=== PATIENT | male | born 1955 | race African-American/Black ===

== ENCOUNTER 2017-04-20 15:00 | Emergency (ER) | payer OTHER ==
[~2017-04-20] VITALS: Ht 177.8 cm; Wt 85.1 kg
[2017-04-20 15:06] VITALS: TEMP 36.9; Ht 177.8 cm; Wt 85.1 kg
[2017-04-20 15:59] LABS: BASO % 0.2 %; BASO ABS # 0.01 K/uL (0-0.2); EOS % 2.7 %; EOS ABS # 0.16 K/uL (0-0.5); IG# 0.01 K/uL (0.00-0.02); LYMPH % 26.8 %; MEAN CELL VOLUME 87.6 fL (80-100); MEAN CORPUSCULAR HEMOGLOBIN 30.5 pg (25-34); MEAN CORPUSCULAR HGB CONC 34.9 g/dl (32-36); MEAN PLATELET VOLUME 9.4 fL (7.4-10.4); MONO ABS # 0.42 K/uL (0.11-0.59); NEUT % 63.1 %; NEUT ABS # 3.77 K/uL (1.4-6.5); PLATELET COUNT 234 K/uL (130-400); RED CELL DISTRIBUTION WIDTH CV 13.6 % (11.5-14.5); RED CELL DISTRIBUTION WIDTH SD 43.8 fL (36.4-46.3); WHITE BLOOD COUNT 5.97 K/uL (4.8-10.8)
[2017-04-20 16:53] LABS: ALBUMIN 4.2 gm/dl (3.4-5.0); CALCIUM 9.2 mg/dl (8.5-10.1); CREATININE 1.36 mg/dl (0.60-1.40); POTASSIUM 3.8 mmol/L (3.5-5.1); TOTAL PROTEIN 7.5 gm/dl (6.4-8.2)
--- NOTE | 2017-04-20 17:51 | DIAGNOSTIC IMAGING REPORT ---
CT OF THE HEAD WITHOUT CONTRAST CLINICAL HISTORY: Right facial weakness. COMPARISON STUDY: No previous studies for comparison. CT DOSE: 537.48 mGy.cm TECHNIQUE: Helical axial images of the head were obtained without IV contrast. Automated exposure control was utilized for the study. A dose lowering technique was utilized adhering to the principles of ALARA. FINDINGS: No acute intracranial hemorrhage, midline shift or mass effect is present. Ventricular system is normal. Basilar cisterns are patent. There are no extra-axial collections. Pierce-white differentiation is maintained. There are no findings to suggest acute dural sinus thrombosis or acute territorial infarct. The left sphenoid sinus is opacified. The left sphenoethmoidal recess is occluded. There is trace fluid within left mastoid air cells. There is moderate mucosal thickening of the right maxillary sinus with wall thickening. IMPRESSION: 1. No acute intracranial findings. 2. Opacified left sphenoid sinus and occluded left sphenoethmoidal recess. 3. Trace fluid within left mastoid air cells. Electronically signed by: Lincoln Harper M.D. 04/20/2017 5:50 PM Dictated Date/Time: 04/20/2017 5:46 PM
--- NOTE | 2017-04-20 18:09 | DIAGNOSTIC IMAGING REPORT ---
SOFT TISSUE NECK WITHOUT CLINICAL HISTORY: Right facial weakness. Evaluate for abscess. COMPARISON STUDY: No previous studies for comparison. TECHNIQUE: Axial images of the neck were obtained without IV contrast. Sagittal and coronal reconstructions were viewed. FINDINGS: Visualized portions of the intracranial contents are unremarkable. There is trace fluid within the left mastoid air cells. The left sphenoid sinus is opacified and the left sphenoethmoidal recess is occluded. There is marked mucosal thickening of the right maxillary sinus. Evaluation of the neck is suboptimal on this unenhanced exam. The epiglottis is normal. The parotid and submandibular glands are normal. Several teeth are absent. There are multiple dental amalgams. There are multiple periapical lucencies associated with mandibular teeth. No adjacent soft tissue abscess is identified on this unenhanced exam. There is no cervical lymphadenopathy. Lung apices are clear. No suspicious osseous lesions are present. Multiple sites of venous gas are noted. This is related to IV placement. Sensitivity for detection mucosal lesions is significantly diminished on this unenhanced exam. IMPRESSION: 1. No abscess within the neck. Suboptimal evaluation of the neck on this unenhanced exam. 2. Periapical lucencies associated with multiple mandibular teeth. No adjacent soft tissue abscess. 3. Opacified left sphenoid sinus with occluded left sphenoethmoidal recess. Marked mucosal thickening of the right maxillary sinus. Electronically signed by: Lincoln Harper M.D. 04/20/2017 6:07 PM Dictated Date/Time: 04/20/2017 5:59 PM
[2017-04-20] MEDS ORDERED: PRED50TA PO (18:56)
[2017-04-20] MEDS ORDERED: AMOX875T PO (18:56)
--- NOTE | 2017-04-20 19:01 | EMERGENCY ROOM VISIT NOTE ---
History Report prepared by Rosalie: Steven Gabriel Under the Supervision of: Dr. Jose Elias Zaman M.D. First contact with patient: 15:10 Chief Complaint: NEURO SYMPTOMS Stated Complaint: REDUSED MOTOR SKILLS History of Present Illness The patient is a 61 year old male who presents to the Emergency Room with complaints of persistent right facial weakness beginning two days ago. He woke up with abnormal sensations to his tongue initially, but later noticed problems with motor control of his right eye and right side of the mouth. The patient spoke with his machine riveter about his symptoms and was referred to the ED. He has no history of cardiac problems or stroke. He notes that he had a known tick bite seven months ago, and has not noticed any since. The patient denies chest pain, SOB, abdominal pain, nausea, vomiting, rashes, or fevers. He had surgery for sleep apnea two months ago. He notes that he has a "bad tooth" on the left side of his jaw, which started bothering him two days ago as well. The patient also complains of right neck pain which began a few weeks ago. Source of History: patient Onset: Two days ago Position: head (right face) Quality: other (weakness) Timing: other (persistent) Associated Symptoms: + neck pain (right, a few weeks ago), No chest pain, No SOB, No nausea, No vomiting, No abdominal pain, No rash Note: Additional symptoms: abnormal sensations of the tongue. Review of Systems See HPI for pertinent positives & negatives. A total of 10 systems reviewed and were otherwise negative. Past Medical & Surgical Medical Problems: (1) No Known Active Medical Problems Old medical records were reviewed. Nurse's notes were reviewed and I agree with. Family History No pertinent family history stated. Social History Smoking Status: Never Smoker Drug Use: none Occupation Status: employed Current/Historical Medications Scheduled Amoxicillin & Pot Clavulanate (Augmentin 875-125 mg), 875 MG PO BID Prednisone Tab (Prednisone), 50 MG PO QD Allergies Coded Allergies: [place] Starch (Verified Allergy, Severe, ANAPHYLAXIS, 04/20/17) Molds & Smuts (Unverified Allergy, Unknown, UNKNOWN, 04/20/17) Physical Exam Vital Signs Date Time Temp Pulse Resp B/P (MAP) Pulse Ox O2 Delivery O2 Flow Rate FiO2 04/20/17 19:24 54 18 150/91 99 Room Air 04/20/17 17:10 58 18 158/95 100 Room Air 04/20/17 15:06 36.9 66 18 159/101 97 Room Air Physical Exam General: Non-ill appearing middle-aged female in no acute distress. HEENT: Normal cephalic atraumatic. Pupils are equal round and reactive to light. There is some tearing of the right eye. Extraocular movements are intact. Oropharynx is pink with moist mucous membranes. No swelling of the mouth lips or tongue. No evidence of abscess. No Praneeth's angina. No difficulty speaking or swallowing. Neck: Supple with a midline trachea. No meningeal signs or stiffness, no JVD or bruits. No Stridor. Chest: Clear to auscultation bilaterally. No wheezes or rhonchi. No increased work of breathing. Heart: regular rate and rhythm. Abdomen: Soft nontender, nondistended without rebound guarding or rigidity. Extremities: No cyanosis clubbing or edema. No calf tenderness or assymetry Spine/Back. Non tender to palpation. No CVA tenderness Skin: Good turgor without rashes. Neurologic exam: Cranial nerves two through 12 are intact. Mild weakness of right face with smiling. Able to close eye on right, but weaker than left. Motor and sensation are intact and symmetrical throughout. Medical Decision & Procedures ER Provider Diagnostic Interpretation: Radiology results as stated below per my review and radiologist interpretation: CT OF THE HEAD WITHOUT CONTRAST FINDINGS: No acute intracranial hemorrhage, midline shift or mass effect is present. Ventricular system is normal. Basilar cisterns are patent. There are no extra-axial collections. Pierce-white differentiation is maintained. There are no findings to suggest acute dural sinus thrombosis or acute territorial infarct. The left sphenoid sinus is opacified. The left sphenoethmoidal recess is occluded. There is trace fluid within left mastoid air cells. There is moderate mucosal thickening of the right maxillary sinus with wall thickening. IMPRESSION: 1. No acute intracranial findings. 2. Opacified left sphenoid sinus and occluded left sphenoethmoidal recess. 3. Trace fluid within left mastoid air cells. Electronically signed by: Lincoln Harper M.D. 04/20/2017 5:50 PM SOFT TISSUE NECK WITHOUT FINDINGS: Visualized portions of the intracranial contents are unremarkable. There is trace fluid within the left mastoid air cells. The left sphenoid sinus is opacified and the left sphenoethmoidal recess is occluded. There is marked mucosal thickening of the right maxillary sinus. Evaluation of the neck is suboptimal on this unenhanced exam. The epiglottis is normal. The parotid and submandibular glands are normal. Several teeth are absent. There are multiple dental amalgams. There are multiple periapical lucencies associated with mandibular teeth. No adjacent soft tissue abscess is identified on this unenhanced exam. There is no cervical lymphadenopathy. Lung apices are clear. No suspicious osseous lesions are present. Multiple sites of venous gas are noted. This is related to IV placement. Sensitivity for detection mucosal lesions is significantly diminished on this unenhanced exam. IMPRESSION: 1. No abscess within the neck. Suboptimal evaluation of the neck on this unenhanced exam. 2. Periapical lucencies associated with multiple mandibular teeth. No adjacent soft tissue abscess. 3. Opacified left sphenoid sinus with occluded left sphenoethmoidal recess. Marked mucosal thickening of the right maxillary sinus. Electronically signed by: Lincoln Harper M.D. 04/20/2017 6:07 PM Laboratory Results 04/20/17 15:40 Red Blood Count 4.91, Mean Corpuscular Volume 87.6, Mean Corpuscular Hemoglobin 30.5, Mean Corpuscular Hemoglobin Concent 34.9, Mean Platelet Volume 9.4, Neutrophils (%) (Auto) 63.1, Lymphocytes (%) (Auto) 26.8, Monocytes (%) (Auto) 7.0, Eosinophils (%) (Auto) 2.7, Basophils (%) (Auto) 0.2, Neutrophils # (Auto) 3.77, Lymphocytes # (Auto) 1.60, Monocytes # (Auto) 0.42, Eosinophils # (Auto) 0.16, Basophils # (Auto) 0.01 04/20/17 15:40 Test 04/20/17 15:40 04/20/17 15:47 04/20/17 17:00 White Blood Count 5.97 K/uL (4.8-10.8) Red Blood Count 4.91 M/uL (4.7-6.1) Hemoglobin 15.0 g/dL (14.0-18.0) Hematocrit 43.0 % (42-52) Mean Corpuscular Volume 87.6 fL (80-100) Mean Corpuscular Hemoglobin 30.5 pg (25-34) Mean Corpuscular Hemoglobin Concent 34.9 g/dl (32-36) Platelet Count 234 K/uL (130-400) Mean Platelet Volume 9.4 fL (7.4-10.4) Neutrophils (%) (Auto) 63.1 % Lymphocytes (%) (Auto) 26.8 % Monocytes (%) (Auto) 7.0 % Eosinophils (%) (Auto) 2.7 % Basophils (%) (Auto) 0.2 % Neutrophils # (Auto) 3.77 K/uL (1.4-6.5) Lymphocytes # (Auto) 1.60 K/uL (1.2-3.4) Monocytes # (Auto) 0.42 K/uL (0.11-0.59) Eosinophils # (Auto) 0.16 K/uL (0-0.5) Basophils # (Auto) 0.01 K/uL (0-0.2) RDW Standard Deviation 43.8 fL (36.4-46.3) RDW Coefficient of Variation 13.6 % (11.5-14.5) Immature Granulocyte % (Auto) 0.2 % Immature Granulocyte # (Auto) 0.01 K/uL (0.00-0.02) Anion Gap 9.0 mmol/L (3-11) Est Creatinine Clear Calc Drug Dose 57.4 ml/min Estimated GFR () 63.7 Estimated GFR (Non- 55.0 BUN/Creatinine Ratio 8.6 (10-20) Calcium Level 9.2 mg/dl (8.5-10.1) Total Bilirubin 0.5 mg/dl (0.2-1) Direct Bilirubin mg/dl (0-0.2) Aspartate Amino Transf (AST/SGOT) 21 U/L (15-37) Alanine Aminotransferase (ALT/SGPT) 23 U/L (12-78) Alkaline Phosphatase 65 U/L (45-117) Total Protein 7.5 gm/dl (6.4-8.2) Albumin 4.2 gm/dl (3.4-5.0) Lipase 151 U/L (73-393) Chemistry Specimen Hemolysis Bedside Troponin I < 0.030 ng/ml (0-0.045) Lyme Disease IgG Antibody NEG (NEG) Lyme Disease IgM Antibody NEG (NEG) Laboratory studies as stated above per my review. Medications Administered Medications (Trade) Dose Ordered Sig/Roxanne Route Start Time Stop Time Status Last Admin Dose Admin Prednisone (PredniSONE TAB) 50 mg ONE STAT PO 04/20/17 19:12 04/20/17 19:13 DC 04/20/17 19:26 50 MG Amoxicillin/ Clavulanate Potassium (Augmentin 875MG Home Pack) 1 homepack STK-MED ONCE PO 04/20/17 19:21 04/20/17 19:22 DC 04/20/17 19:26 1 HOMEPACK ECG Per My Interpretation Indication: weakness Rate (beats per minute): 61 Rhythm: normal sinus Findings: RBBB (incomplete), no acute ischemic change, no ectopy Comparison ECG Date: no prior available ED Course 151: Past medical records reviewed. The patient was evaluated in room C11B, and a complete history and physical examination were performed. 1854: Upon reevaluation, the patient is resting comfortably. I discussed the results and treatment plan with him. He verbalized agreement of the treatment plan. The patient was discharged home. Medical Decision Differentials include, but are not limited to; Goyal's palsy, CVA, lyme disease, infection, and electrolyte or metabolic abnormality. This patient comes in as described above. He has some mild facial symptoms on the right. I think he does likely have a mild Goyal's palsy. It started with a abnormal feeling in his tongue and then weakness that was mild on his right face as well as his eye. He looks well. He's had no fever. He has no rash. He has no other deficits. IV access was established and blood work was obtained. He has no white count or fever to suggest infection. His Lyme titer is negative. EKG does not suggest acute coronary syndrome or arrhythmia. No acute electrolyte or metabolic abnormalities. CAT scan of his head was unremarkable. CAT scan of the face was unremarkable in terms of abscess. He does have some dental caries. He does have some fluid in his sphenoid sinus. He does not have symptoms to suggest sinusitis but I will put him on Augmentin 875 mg twice a day and I do not think that explained most of his symptoms however. I will also put him on prednisone which will help his Goyal's palsy as well as potential sinus issues and drainage. He is allergic to corn and I made sure that we gave him pills here that were corn starch free and he is going to check with the pharmacist. I told him that I cannot 100% rule out that this could be an stroke and more of a central process and recommended we do an MRI. This has been going on for more than one day and he feels like he is getting better. he declines MRI and said he will get this done by his regular doctor when he goes home if the symptoms persist or worsen. I encouraged her current to the ER if he has increasing numbness or weakness, fever or chills, worsening of symptoms, any problems concerns. He is happy the plan and discharged to home. I encouraged close follow-up with his doctor in the next couple days. Medication Reconcilliation Current Medication List: was personally reviewed by me Blood Pressure Screening Patient's blood pressure: Elevated blood pressure Blood pressure disposition: Referred to PCP Impression Primary Impression: Goyal's palsy Additional Impression: Facial weakness Scribe Attestation The scribe's documentation has been prepared under my direction and personally reviewed by me in its entirety. I confirm that the note above accurately reflects all work, treatment, procedures, and medical decision making performed by me. Departure Information Dispostion Home / Self-Care Prescriptions Prednisone Tab (PREDNISONE) 10 Mg Tab 50 MG PO QD for 4 Days, #20 TAB Prov: Jose Elias Zaman M.D. 04/20/17 Amoxicillin & Pot Clavulanate (Augmentin 875-125 mg) 1 Tab Tab 875 MG PO BID for 10 Days, #20 TAB Prov: Jose Elias Zaman M.D. 04/20/17 Referrals No Doctor, Assigned (PCP) Forms HOME CARE DOCUMENTATION FORM, IMPORTANT VISIT INFORMATION, WORK / SCHOOL INSTRUCTIONS Patient Instructions ED [place] [facility], [facility] Additional Instructions Rest. Drink plenty of fluids. Use Augmentin 875 mg twice a day for 10 daysantibiotic Use prednisone 50 mg a day once a day for 4 more days Use artificial tears to keep your eye lubricated and if your eye doesn't close at night, you may use Lacri-Lube and tape it shut at night Return if: Worsening of symptoms, numbness or weakness, fever or chills, any new problems or concerns Problem Qualifiers
[2017-04-20] MEDS ORDERED: PRED10TA PO (19:14)
[2017-04-20] MEDS ORDERED: AMOXICIL/CLAVU 875MG HOME PACK PO ONE (19:21)
[2017-04-20 19:24] VITALS: BP 150/91; PULSE 54; O2SAT 99
[2017-04-20] MEDS ORDERED: AMOXICILLIN/CLAVULANATE TAB 875 MG TAB PO ONE (21:00)
== END 2017-04-20 19:30 | disposition home or self-care (01) ==
LOC: C.EDB 15:03 → C.EDC 19:30
DX: G51.0 Bell's palsy (principal); M54.2 Cervicalgia; K02.9 Dental caries, unspecified; R03.0 Elevated blood-pressure reading, without diagnosis of hypertension; Z91.048 Other nonmedicinal substance allergy status